=== PATIENT | male | born 1955 | race Caucasian/White ===

== ENCOUNTER 2020-11-09 13:52 | Emergency (ER) | payer MEDICARE ==
[~2020-11-09 13:52] MED LIST: ASPIRIN EC81 MG PO; COZAAR100 MG PO; GLUCOPHAGE850 MG PO; LEXAPRO 10MG TA10 MG PO; LIPITOR40 MG PO; NEURONTIN300 M1 PO; NORCO 5-325 TA1 EACH PO; PHENERGAN25 M1 PO; PLAVIX75 MG PO; PRAVACHOL20 MG PO; PRILOSEC20 MG PO; TOPROL XL 50 MG50 MG PO; TRULICITY1.5 MG/0.5 SC; ZANTAC150 MG PO
[2020-11-09 17:20] LABS: BASOPHIL 0.2 % (0-2); HCT 31.7 % (42.0-52.0); HGB 10.9 g/dl (13.2-18.0); LYMPHOCYTE 27.4 % (15-48); MCH 30.1 pg (25.0-31.0); MCHC 34.4 g/dL (32.0-36.0); MCV 87.6 fL (78.0-100.0); MONOCYTE 7.9 % (0-12); MPV 9.8 fL (6.0-9.5); NEUTROPHIL 62.7 % (41-80); NRBC 0; PLT 210 K/uL (150-400); RBC 3.62 M/uL (4.70-6.00); WBC 5.2 K/uL (4.0-10.5)
[2020-11-09 17:34] LABS: INR 1.11 (0.9-1.2); PROTHROMBIN TIME 13.6 SECONDS (11.4-13.6); PTT 25.8 SECONDS (22.2-34.7)
[2020-11-09 17:49] LABS: PRO-BNP 262 pg/mL (<125)
[2020-11-09 17:59] LABS: BILIRUBIN - TOTAL 0.7 mg/dL (0.2-1.0); BUN/CREAT RATIO (CALC) 26.3 RATIO; C-REACTIVE PROTEIN 11.8 mg/dL (<=0.90); CREATININE 0.76 mg/dL (0.67-1.17); GLOBULIN (CALCULATION) 4.4 g/dL; LACTIC ACID 1.2 mmol/L (0.4-1.9); TOTAL PROTEIN 6.4 g/dL (6.4-8.2)
[2020-11-09] MEDS ORDERED: VIBRAMYCIN100 MG PO (20:39)
[2020-11-09] MEDS ORDERED: NORCO 5-325 TA1 EACH PO (20:39)
[2020-11-11 16:10] LABS: LYME IGG/IGM AB <0.91 ISR (0.00-0.90)
[2020-11-16 16:09] LABS: E. CHAFFEENSIS (HME) IGG TITER Negative (Neg:<1:64); E. CHAFFEENSIS (HME) IGM TITER Negative (Neg:<1:20); HGE IGG TITER Negative (Neg:<1:64); HGE IGM TITER Negative (Neg:<1:20)
[2020-11-22 09:08] LABS: FRANCISELLA TULARENSIS IGG Negative (Negative); FRANCISELLA TULARENSIS IGM Negative (Negative)
[2020-11-23] MEDS ORDERED: TAMSULOSIN HCL0.4 MG PO (13:49)
== END 2020-11-09 21:55 | disposition home or self-care (01) ==
LOC: FER 13:52
PROVIDERS: Emergency Medicine; Emergency Medicine Emergency Medical Services
DX: R23.3 Spontaneous ecchymoses (principal); I10 Essential (primary) hypertension; E11.9 Type 2 diabetes mellitus without complications; Z79.01 Long term (current) use of anticoagulants; Z20.828 Contact with and (suspected) exposure to other viral communicable diseases
CPT/HCPCS: 36415; 71045; 71250; 80053; 82550; 82728; 83540; 83605; 83615; 83880; 84145; 84443; 84484; 85025; 85610; 85730; 86140; 86618; 86666; 86757; 87040; J0696; J1170; J1200; J2405; J7030; U0002

== ENCOUNTER → 2020-11-30 | Day surgery (SDC) | payer MEDICARE ==
[~2020-11-30] MED LIST changes: +TAMSULOSIN HCL0.4 MG PO; +VIBRAMYCIN100 MG PO
== END | disposition home or self-care (01) ==
LOC: FAS 07:37
DX: K29.50 Unspecified chronic gastritis without bleeding (principal); R63.4 Abnormal weight loss; I25.10 Atherosclerotic heart disease of native coronary artery without angina pectoris; E11.9 Type 2 diabetes mellitus without complications; K21.9 Gastro-esophageal reflux disease without esophagitis; I25.2 Old myocardial infarction; R41.3 Other amnesia; I10 Essential (primary) hypertension; J60 Coalworker's pneumoconiosis; E78.00 Pure hypercholesterolemia, unspecified; G47.33 Obstructive sleep apnea (adult) (pediatric); Z95.5 Presence of coronary angioplasty implant and graft; Z79.84 Long term (current) use of oral hypoglycemic drugs; Z87.891 Personal history of nicotine dependence
CPT/HCPCS: 88305; J2704; J7120